=== PATIENT | male | born 1925 | race Caucasian/White ===

== ENCOUNTER 2017-01-16 10:18 | Emergency (ER) | payer MEDICARE, OTHER ==
[~2017-01-16] VITALS: Ht 177.8 cm; Wt 58.2 kg
[~2017-01-16 10:18] MED LIST: ACET325 PO; AMIT10 PO; BUPR150T3 PO; CYCL1PAK PO; DORZ1SOL2; ERGO50000 PO; OXYC5 PO; PRED5 PO; SIMV40 PO; TAB-TAB PO; ZYTI250T PO
[2017-01-16 10:22] VITALS: BP 162/80; PULSE 81; RESP 18; O2SAT 95
[2017-01-16] MEDS ORDERED: DILA8TAB4 PO (10:35)
[2017-01-16] MEDS ORDERED: BUPR150T3 PO (10:35)
[2017-01-16] MEDS ORDERED: SENN8.6T19 PO (10:35)
[2017-01-16] MEDS ORDERED: HYDR2TAB PO (10:35)
[2017-01-16] MEDS ORDERED: MILK2400 PO (10:35)
[2017-01-16] MEDS ORDERED: ZANT150T2 PO (10:35)
[2017-01-16] MEDS ORDERED: METH10TA PO (10:35)
[2017-01-16] MEDS ORDERED: AMIT10TA6 PO (10:35)
[2017-01-16] MEDS ORDERED: DEXA4TAB PO (10:35)
[2017-01-16] MEDS ORDERED: DORZ2SOL15 EACH EYE (10:35)
--- NOTE | 2017-01-16 11:16 | PD ---
HPI Chief Complaint: Fall Time Seen by Provider: 10:44 Travel History International Travel<30 days: No Contact w/Intl Traveler<30days: No Traveled to known affect area: No History of Present Illness HPI 89-year-old male complains of low back pain and buttock pain. Patient has history of metastatic prostate cancer and resides at local [facility]. Patient fell out of bed this morning. The bed was reported to be low near the ground. Patient denies loss of consciousness. Patient denies any headache or neck pain. Patient denies any chest pain or shortness of breath. Patient denies abdominal pain. Patient states the pain is sharp pain localized to low back buttock area. Patient denies any pain radiation. Patient denies any focal weakness and numbness of extremity. Patient has history of diabetes, TIA , CAD status post CABG and pacemaker placement, dyslipidemia, hypertension, chronic back pain. PFSH Past Medical History Arthritis: No Blood Disorders: No Anxiety: No Depression: No Heart Rhythm Problems: No Cancer: Yes (PROSTATE, BONE CA.) Cardiovascular Problems: Yes High Cholesterol: Yes Chemotherapy: No Chest Pain: Yes Congestive Heart Failure: No Cerebrovascular Accident: Yes (TIA) Coronary Artery Disease: Yes Diabetes: Yes (DIET CONTROLLED) Patient Takes Glucophage: No Diminished Hearing: Yes ([place]) Endocrine: Yes Gastrointestinal Disorders: Yes GERD: No Glaucoma: Yes Genitourinary: Yes (URINARY FREQ) Headaches: No Hepatitis: No Hiatal Hernia: Yes Hypertension: Yes Immune Disorder: No Kidney Stones: No Musculoskeletal: Yes (CHRONIC BACK PROBLEMS) Neurologic: Yes Psychiatric: No Reproductive: No Respiratory: No Migraines: No Myocardial Infarction: No Radiation Therapy: No Renal Failure: No Seizures: No Thyroid Disease: No Ulcer: No Influenza Vaccination: Yes Past Surgical History Abdominal Surgery: Yes (BILAT ING HERNIA REPAIR) AICD: No Appendectomy: No Arteriovenous Shunt: No Cardiac Surgery: Yes (2006- [facility]) Cholecystectomy: No Coronary Artery Bypass Graft: Yes (DECEMBER 2006 x5) Ear Surgery: No Endocrine Surgery: No Eye Surgery: Yes (CATARACT SURG BILAT.) Genitourinary Surgery: No Gynecologic Surgery: No Insulin Pump: No Joint Replacement: No Oral Surgery: No Pacemaker: Yes Thoracic Surgery: No Social History Alcohol Use: No Tobacco Use: No Substance Use: No Allergies-Medications (Allergen,Severity, Reaction): Coded Allergies: MRI PRECAUTION (Verified Adverse Reaction, Severe, ADAPTA PACEMAKER 4/7/ 16 LG, 01/16/17) Uncoded Allergies: PAIN MED (Adverse Reaction, Intermediate, VOMITING/CANNOT REMEMBER NAME OF RX, 10/26/10) Reported Meds & Prescriptions Reported Meds & Active Scripts Active Reported Milk of Magnesia Concentrate Liq (Magnesium Hydroxide) 1,200 Mg/5 Ml Susp 30 Ml PO DAILY PRN Dilaudid (Hydromorphone HCl) 8 Mg Tab 8 Mg PO Q4HR PRN Methadone (Methadone HCl) 10 Mg Tab 20 Mg PO Q8HR Hydromorphone (Hydromorphone HCl) 2 Mg Tab 2 Mg PO Q8H PRN Senna-S 8.6-50 mg (Sennosides-Docusate Sodium) 1 Tab Tab 2 Tab PO BID Dorzolamide-Timolol Opth Drops 22.3-6.8 Mg/Ml Soln 1 Drop EACH EYE BID Dexamethasone 4 Mg Tab 4 Mg PO BID Zantac (Ranitidine HCl) 150 Mg Tab 150 Mg PO HS Bupropion HCl ER 24 HR (Bupropion HCl) 150 Mg Tab 150 Mg PO DAILY Amitriptyline (Amitriptyline HCl) 10 Mg Tab 10 Mg PO HS Review of Systems General / Constitutional: No: Fever Eyes: No: Visual changes HENT: No: Headaches Cardiovascular: No: Chest Pain or Discomfort Respiratory: No: Shortness of Breath Gastrointestinal: No: Abdominal Pain Genitourinary: No: Dysuria Musculoskeletal: No: Pain Skin: No Rash Neurologic: No: Weakness Psychiatric: No: Depression Endocrine: No: Polydipsia Hematologic/Lymphatic: No: Easy Bruising Physical Exam Narrative GENERAL: Well-nourished, well-developed patient. SKIN: Focused skin assessment warm/dry. Patient has ecchymosis on the extremity. HEAD: Normocephalic. EYES: No scleral icterus. No injection or drainage. NECK: Supple, trachea midline. No JVD or lymphadenopathy. CARDIOVASCULAR: Regular rate and rhythm without murmurs, gallops, or rubs. RESPIRATORY: Breath sounds equal bilaterally. No accessory muscle use. GASTROINTESTINAL: Abdomen soft, non-tender, nondistended. MUSCULOSKELETAL: No cyanosis, or edema. BACK: patient has mild tenderness on palpation mid to low lumbar area, no obvious deformity. No CVA tenderness. Neurologic exam: Patient's awake and oriented to place and person. Patient moves all extremity well. No obvious focal neurological deficit. Data Data Last Documented VS Vital Signs Date Time Temp Pulse Resp B/P Pulse Ox O2 Delivery O2 Flow Rate FiO2 01/16/17 11:57 78 20 169/62 95 01/16/17 10:[address] Lumb Spine W/O Contrast (01/16/17 10:51) Ct Pelvis W/O Iv Contrast (01/16/17 ) Chest, Single Ap (01/16/17 10:53) MDM Medical Decision Making Medical Screen Exam Complete: Yes Emergency Medical Condition: Yes Interpretation(s) Last Impressions Chest X-Ray 01/16/17 1053 Signed Impressions: Service Date/Time: Monday, January 16, 2017 11:11 - CONCLUSION: 1. Cardiomegaly and findings of vascular congestion without overt failure. 2. Small left effusion Devante Hdz MD Lumbar Spine CT 01/16/17 1051 Signed Impressions: Service Date/Time: Monday, January 16, 2017 11:19 - CONCLUSION: 1. Severe degenerative disc disease maximal at the lumbosacral junction with bilateral spondylolysis and severe bilateral foraminal narrowing at L4-L5 and L5-S1. 2. There is new compression fracture at T11 and T12 when compared with the prior study. MRI is recommended to evaluate for marrow edema. Devante Hdz MD Pelvis CT 01/16/17 0000 Signed Impressions: Service Date/Time: Monday, January 16, 2017 11:19 - CONCLUSION: 1. There is no evidence of acute fracture. 2. 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 Devante Hdz MD Differential Diagnosis Differential diagnosis including contusion, fracture. Narrative Course 89-year-old male with low back pain. Status post fall out of bed this morning. History of metastatic prostate cancer. CT LUMBAR spine show compression fracture T11-T12 however patient does not have any pain there on examination. Patient has no neurological deficit. [facility] back to [facility]. Diagnosis Primary Impression: Fracture of thoracic spine Qualified Code: S22.080A - Closed wedge compression fracture of eleventh thoracic vertebra, initial encounter Patient Instructions: General Instructions Additional Instructions: Continue with all medications. Follow-up with personal physician and orthopedist. Return as needed. Med/Other Pt SpecificInfo: No Change to Meds Disposition: 03 DISCHARGE TO SNF Condition: Stable Deng Guerrero MD Jan 16, 2017 11:16
--- NOTE | 2017-01-16 11:22 | RADHPO ---
EXAM DATE/TIME: 01/16/2017 11:11 [facility] COMPARISON: CHEST SINGLE AP, June 21, 2016, 22:34. INDICATIONS : Chest discomfort; fall today. MEDICAL HISTORY : Hypertension. Diabetes mellitus type II. Carcinoma, prostatic. Bone cancer. Hiatal hernia. TIA. C oronary artery disease. SURGICAL HISTORY : Pacemaker. CABG. Hiatal hernia. ENCOUNTER: Initial ACUITY: 1 day PAIN SCORE: 2/10 LOCATION: Bilateral posterior chest FINDINGS: The cardiac silhouette is normal in transverse diameter. Median sternotomy wires are present. A bipol ar pacemaker is in place via a left sided approach. There is prominence of the central pulmonary vasc ulature with indistinct vascular margins compatible with vascular congestion but no evidence of overt failure. A small left sided effusion is present. CONCLUSION: 1. Cardiomegaly and findings of vascular congestion without overt failure. 2. Small left effusion Devante Hdz MD on January 16, 2017 at 11:20 Board Certified Radiologist. This report was verified electronically.
[2017-01-16 11:57] VITALS: BP 169/62; PULSE 78; RESP 20; O2SAT 95
--- NOTE | 2017-01-16 12:21 | RADHPO ---
EXAM DATE/TIME: 01/16/2017 11:19 [facility] COMPARISON: CT LUMBAR SPINE W/O CONTRAST, June 21, 2016, 22:44. INDICATIONS : Fall. Mid lower back and pelvic pain. RADIATION DOSE: 28.47 CTDIvol (mGy) MEDICAL HISTORY : Cerebrovascular disease. Cardiovascular disease Hypertension.Prostae cancer. Diabetes. SURGICAL HISTORY : Pacemaker. CABGBilateral inguinal hernia repair. ENCOUNTER: Initial ACUITY: 1 day PAIN SCALE: 5/10 LOCATION: lumbar TECHNIQUE: Volumetric scanning of the lumbar spine was performed. Multiplanar reconstructions in the sagittal, coronal and oblique axial planes were performed. Using automated exposure control and adjustment of the mA and/or kV according to patient size, radiation dose was kept as low as reasonably achievable t o obtain optimal diagnostic quality images. FINDINGS: Sagittal images demonstrate normal vertebral body alignment and curvature.There is anterolisthesis li clair related to facet arthritis at L5-S1 6-7 mm with bilateral spondylolysis. There is multilevel dis c space narrowing and marginal osteophyte formation maximal at L4-L5. There is levoscoliosis at the L 4-L5 level with right lateral subluxation of L2 on L3. There is new compression fracture at T11 and T 12 age uncertain. MRI is recommended for further evaluation if clinically indicated.Axial images perf ormed from T12-L1 through L5-S1. T11-T12: There is mild diffuse annular bulge of the disc. The neural foramina are clear bilaterally. There is no significant spinal canal stenosis. T12-L1: There is mild annular bulge of the disc. There is mild facet arthritis and ligamentum flavum hypertro phy bilaterally. The neural foramina are clear bilaterally. L1-L2: There is broad-based annular bulge of disc asymmetric to the left. There is moderate neural foraminal narrowing on the left. There is no significant spinal canal stenosis. L2-L3: There is broad-based annular bulge of disc. There is moderate facet arthritis bilaterally with ligame ntum flavum hypertrophy. There is moderate neural foraminal narrowing on the right. There is severe n eural foraminal narrowing on the left. L3-L4: There is mild annular bulge of the disc. There is severe facet arthritis on the right. There is klever re neural foraminal narrowing on the right. There is no significant spinal canal stenosis. L4-L5: There is moderate spinal canal stenosis. There is severe facet arthritis bilaterally. There is severe neural foraminal narrowing bilaterally. L5-S1: There is severe facet arthritis bilaterally. There is moderate spinal canal stenosis. The hypertrophi c facet markedly impinge on the caudal thecal sac with severe foraminal narrowing bilaterally. CONCLUSION: 1. Severe degenerative disc disease maximal at the lumbosacral junction with bilateral spondylolysis and severe bilateral foraminal narrowing at L4-L5 and L5-S1. 2. There is new compression fracture at T11 and T12 when compared with the prior study. MRI is recomm ended to evaluate for marrow edema. Devante Hdz MD on January 16, 2017 at 12:04 Board Certified Radiologist. This report was verified electronically.
--- NOTE | 2017-01-16 12:26 | RADHPO ---
EXAM DATE/TIME: 01/16/2017 11:19 [facility] COMPARISON: PELVIS AP ONLY, June 21, 2016, 22:29. CT PELVIS W/O CONTRAST, January 21, 2016, 10:30. INDICATIONS : Fall. Mid lower back and pelvic pain. ORAL CONTRAST: No oral contrast ingested. RADIATION DOSE: 19.12 CTDIvol (mGy) MEDICAL HISTORY : Cerebrovascular disease. Cardiovascular disease Hypertension.Prostate cancer. Diabetes. SURGICAL HISTORY : Pacemaker. CABGBilateral inguinal hernia repair. ENCOUNTER: Initial ACUITY: 1 day PAIN SCALE: 5/10 LOCATION: Bilateral pelvis TECHNIQUE: Volumetric scanning of the pelvis was performed. Using automated exposure control and adjustment of the mA and/or kV according to patient size, radiation dose was kept as low as reasonably achievable t o obtain optimal diagnostic quality images. FINDINGS: There is coarsening of the trabecular pattern involving the acetabular regions bilaterally and both f emoral necks characteristic of Paget's disease. No acute fracture is identified. There is superior na rrowing of the joint spaces bilaterally. Soft tissue structures demonstrate no acute abnormality. The re is diverticulosis without evidence of diverticulitis. CONCLUSION: 1. There is no evidence of acute fracture. 2. 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 Devante Hdz MD on January 16, 2017 at 12:22 Board Certified Radiologist. This report was verified electronically.
[2017-01-16 15:28] VITALS: BP 162/60
== END 2017-01-16 15:33 ==
LOC: PHED 10:18
DX: S22.080A Wedge compression fracture of T11-T12 vertebra, initial encounter for closed fracture (principal); I25.10 Atherosclerotic heart disease of native coronary artery without angina pectoris; E11.9 Type 2 diabetes mellitus without complications; I10 Essential (primary) hypertension; W06.XXXA Fall from bed, initial encounter; Z86.73 Personal history of transient ischemic attack (TIA), and cerebral infarction without residual deficits
CPT/HCPCS: 71010; 72131; 72192